=== PATIENT | female | born 1925 | race Caucasian/White ===

== ENCOUNTER 2017-10-17 11:05 | Inpatient (IN) ==
[2017-10-17 11:59] VITALS: BMI 24.0
[2017-10-17] MEDS ORDERED: LEVOFLOXACIN 500 MG/100 ML PREMIX IV SCH (12:00)
[2017-10-17] MEDS ORDERED: ENOXAPARIN 80 MG/0.8 ML INJECTION SQ SCH (12:45)
[2017-10-17] MEDS ORDERED: SALINE FLUSH 10ml SYRINGE ONE (13:16)
[2017-10-17] MEDS ORDERED: IOHEXOL 350mg/ml 75ml INJECTION ONE (13:16)
[2017-10-17] MEDS ORDERED: METHYLPREDNISOLONE SOD SUCC 125mg/2ml INJECTION IVP ONE (14:52)
[2017-10-17] MEDS ORDERED: RANITIDINE 150 MG TABLET PO ONE (14:53)
--- NOTE | 2017-10-17 16:52 | CT Scan Report ---
Indication: ELEVATED DDIMER PROCEDURE: CT angio pulm emboli: Encounter: Initial Comparison: None Technique: Axial CT pulmonary angiographic phase images were performed through the chest after the administration of intravenous contrast. Coronal and Sagittal MIP reconstructed images were created and reviewed. Automated Exposure Control and Iterative Reconstruction dose reducing techniques were utilized. Contrast: Omnipaque 350 53 mL Findings: Pulmonary arteries: Exam is diagnostic to the subsegmental pulmonary arterial level. No filling defects identified to suggest a pulmonary embolus. Other findings: Small bilateral pleural effusions. Patchy bilateral lower lobe airspace opacities. Pulmonary vascular prominence. No pneumothorax. No pulmonary masses. The central airways are patent. No axillary or mediastinal adenopathy. Heart is severely enlarged without pericardial effusion. Subcutaneous edema is noted. Reflux of contrast into the hepatic veins consistent with right heart insufficiency. The upper abdomen shows no acute findings. Impression: 1. No pulmonary embolus. 2. Pleural effusions and findings of right heart insufficiency. 3. Severe cardiomegaly. .
--- NOTE | 2017-10-17 20:30 | History and Physical ---
CHIEF COMPLAINT Difficulty breathing. HPI The patient is an 89-year-old female who presented to the office to see Dr. Duncan Albarado yesterday, 10/16/2017 with a chief complaint of a five-week history of rather progressive, worsening shortness of breath, particularly with ambulation. She is just not getting better. Sometimes really has difficulty moving and is fatigued. She denies any chest pain. We did a chest x-ray in the office that shows severe cardiomegaly and also moderate heart failure - cannot rule out pneumonia. We did some lab including CMP, Troponin I, D-dimer and BMP. The BMP did show a potassium of 3.4. D-dimer showed 2175. Because of this the patient was sent here at my request for direct admission to [facility] for further evaluation and recommendations. Yesterday we sent her home on Levaquin. PAST MEDICAL HISTORY 1. 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 2. Positive JOYA, chronic. 3. Hypertension. 4. DJD. 5. Gastroesophageal reflux disease. 6. Stress incontinence of urine. 7. Fibrocystic breast disease. 8. Dyslipidemia. PAST SURGICAL HISTORY Not listed. FAMILY HISTORY Cancer, heart disease and hypertension. CURRENT MEDICATIONS 1. Biotin/calcium carbonate 800/195 mg one tablet daily. 2. Hydrochlorothiazide 25 mg one tablet daily. 3. Klor-Con sprinkles 10 mEq one tablet daily. 4. Levaquin 500 mg p.o. daily. 5. Mapap Extra-Strength 500 mg p.o. p.r.n. 6. Multivitamin one tablet daily. 7. Prednisone 10 mg two tablets daily started yesterday. 8. Vitamin D3 1000 IU once daily. 9. Vitamins A/C/E/Zinc/Copper twice daily. ALLERGIES Iodine causes rash and redness. Penicillin causes rash. Allopurinol. REVIEW OF SYSTEMS As per HPI above. Denies chest pain, orthopnea, PND. Does have some mild leg- swelling. Denies hematochezia, melena. Denies TIA or CVA symptoms at this time. PHYSICAL EXAM: VITAL SIGNS: BP 130/80, PULSE 100, R 18, TEMP 96, SAO2 96% RA. GENERAL: The patient looks comfortable. Appears to be weak. HEENT: Unremarkable. NECK: Supple. CHEST: Lungs have a few crackles at the bases. CARDIOVASCULAR: Right upper sternal border systolic ejection murmur. ABDOMEN: Soft, nontender. No mass is palpable. EXTREMITIES: No cyanosis, clubbing or edema. NEUROLOGIC: Grossly intact. LABORATORY (done in office yesterday). Sodium 134, potassium 3.4, glucose 114, creatinine 0.7, BUN 12. CBC was normal. D-dimer 2175. Troponin I 0.04. IMAGING Chest x-ray shows cardiac silhouette severely enlarged. There is a finding of [id number] congestive heart failure - cannot rule out aspiration pneumonia in this setting as per radiologist interpretation. ASSESSMENT 1. Acute congestive heart failure. This is a new diagnosis for this patient. Type is unknown. Diastolic, systolic or both will be investigated. 2. Dyspnea on exertion due to #1. 3. History of lymphoma - patient in remission. 4. Elevated D-dimer. Rule out PE. PLAN The patient will be scheduled for CT angiogram. Will also check echocardiogram. Followup electrolytes in the morning. Replace potassium. Dr. Stuart will be consulted at patient's request. CINTHIA
[2017-10-17] MEDS ORDERED: FUROSEMIDE 40 MG/4 ML INJECTION IVP SCH (21:00)
[2017-10-17 23:20] VITALS: BP 118/67; PULSE 91; RESP 22; TEMP 96; O2SAT 94
[2017-10-18] MEDS ORDERED: EPINEPHRINE 1 MG/10 ML PFS IV ONE (06:19)
--- NOTE | 2017-10-18 20:43 | Death Summary ---
DISCHARGE SUMMARY/ SUMMARY FINAL DIAGNOSES 1. . 2. Acute congestive heart failure. 3. Dyspnea due to #2. 4. Mildly elevated Troponin I probably due to CHF. REASON FOR ADMISSION 89-year-old female presented to the office on 10/16/2017 with chief complaint of a five-week history of gradual progressive shortness of breath, particularly worse with ambulation. She complained of fatigue. She denied any chest pain. Chest x-ray showed cardiomegaly with moderate heart failure - could not rule out pneumonia. The patient went home. We did some lab including CMP, Troponin I , D-dimer and BNP. Potassium was low at 3.4. D-dimer was high at 2175. The patient had received Levaquin on 10/16/2017. Her D-dimer was high and therefore the patient was called and admitted to [facility] because of concern of possible PE. This was the main reason for admission. The patient received Lovenox upon arrival to the medical floor. HOSPITAL COURSE The patient was admitted to the general medical floor. The patient received Lovenox, one dose. This was followed by CTA angiogram of the chest that showed no PE other than cardiomegaly and CHF. The patient was receiving treatment. I did have a consultation with Dr. Stuart for the patient to be seen today, 10/18. The patient actually looked great. She was happy. She was not in acute distress. She was not requiring any oxygen. Oxygen saturation was about 95%. I saw the patient around 7 o'clock last night with her daughter in the room. She was really very happy. She looked great. She was very thankful for the doctor- patient relationship I have had with her for almost 16 years. About 4 o'clock this morning I received a phone call from the RN taking care of this patient that the patient coded. The patient was asystolic- ACLS protocol initiated to revive her but unsuccessful. The patient was pronounced at about 0413 hours on 10/18/2017. I came to the hospital to follow up on the of this patient. Her daughter came and she was provided with as much comfort as possible. She was gracious to the staff and to me for all the years of the patient-doctor relationship with her mother. She was thankful to Dr. Cortez and his oncological team for taking of her mom during her cancer treatment over several years. The daughter absolutely refused any autopsy. FABIOLAD
--- NOTE | 2017-10-19 11:25 | Echocardiogram ---
DATE OF PROCEDURE October 17, 2017 REFERRING PHYSICIAN Duncan Albarado MD This is a two-dimensional echo with spectral Doppler, color-flow and M-mode. It was obtained in a patient with shortness of air. Left atrium is dilated. Left ventricular end-diastolic dimension is increased. Left ventricle wall thickness increased. Severe global hypokinesia is present with ejection fraction no more than 20%. Right atrium is dilated. Right ventricle is normal. Aortic root dimension is at the upper limits of normal. Mitral annulus is calcified. Mitral valve leaflets are normal with mild mitral regurgitation. Aortic valve shows fibrocalcific changes with no stenosis. Moderate aortic insufficiency is present. Tricuspid valve shows moderate tricuspid regurgitation with moderate pulmonary hypertension with estimated pulmonary artery systolic pressure of 53. Pulmonary valve shows mild pulmonary insufficiency. There is no pericardial effusion. Inferior vena cava is dilated and no response to respiration suggestive of elevated central venous pressure. IMPRESSION 1. Severe global hypokinesia with ejection fraction no more than 20%. 2. Biatrial dilation. 3. Left ventricular dilation. 4. Left ventricular hypertrophy. 5. Abnormal inferior vena cava suggestive of elevated central venous pressure. 6. Mitral annulus calcification with mild mitral regurgitation. 7. Aortic sclerosis with moderate aortic insufficiency. 8. Moderate tricuspid regurgitation with moderate pulmonary hypertension with estimated pulmonary artery systolic pressure of 53. 9. Mild pulmonary insufficiency. MTDD
== END 2017-10-18 06:20 | disposition expired | DRG 293 ==
LOC: MED 11:22
PROVIDERS: ADMIT Family Medicine; ATTEND Family Medicine